=== PATIENT | male | born 1965 | race Caucasian/White ===

== ENCOUNTER 2023-10-04 20:16 | Inpatient (IN) | payer OTHER ==
[2023-10-04] MEDS ORDERED: GLUCAGON 1 MG KIT ONE (20:56)
[2023-10-04] MEDS ORDERED: DEXTROSE 50%-WATER - 25 GM/50 ML VIAL IVPUSH ONE (20:57)
[2023-10-04] MEDS ORDERED: DEXTROSE 50%-WATER 25 GM/50 ML DISP.SYRIN ONE (20:57)
[2023-10-04] MEDS ORDERED: LACTATED RINGERS SOLUTION 1000 ML INFUS.BAG IV ONE (21:03)
[2023-10-04] MEDS ORDERED: GLUCAGON 1 MG KIT IM ONE (21:06)
[2023-10-04 21:24] LABS: BASO % 0.6 % (0-2.0); EOS % 0.2 % (0-4.5); HEMATOCRIT 41.3 % (35.4-49); HEMOGLOBIN 13.9 GM/dL (11.7-16.9); LYMPH % 5.4 % (8-40); MCH 29.4 pg (25.7-33.7); MCHC 33.6 g/dl (32.0-35.9); MEAN CELL VOLUME 87.5 fl (80-96); MEAN PLT VOLUME 7.3 fl (7.5-11.1); MONO % 8.9 % (3.8-10.2); NEUT % 84.9 % (42.8-82.8); PLATELET COUNT 346 10^3/uL (134-434); RBC 4.72 M/mm3 (4.00-5.60); RDW 15.6 % (11.9-15.9); WHITE BLOOD COUNT 8.3 K/mm3 (4.0-10.0)
[2023-10-04 21:31] LABS: INR 1.03 (0.83-1.09); PROTHROMBIN TIME (PATIENT) 11.9 SEC (9.7-13.0)
[2023-10-04 21:33] LABS: ACTIVATED PTT 29.7 SECONDS (25.2-36.5)
[2023-10-04 21:48] LABS: POTASSIUM 4.7 mmol/L (3.5-5.1)
[2023-10-04 21:51] LABS: BLOOD UREA NITROGEN 56.6 mg/dL (7-18)
[2023-10-04 21:52] LABS: ALBUMIN 3.3 g/dl (3.4-5.0)
[2023-10-04 21:54] LABS: CREATININE 4.2 mg/dL (0.55-1.3)
[2023-10-04 21:56] LABS: BILIRUBIN,TOTAL 0.5 mg/dL (0.2-1); TOT PROT 6.8 g/dl (6.4-8.2)
[2023-10-04] MEDS ORDERED: ACETAMINOPHEN INJECTION 100 ML IVPB ONE (22:13)
[2023-10-05] MEDS ORDERED: DEXTROSE 5%-0.45% SALINE 1,000 ML IV SCH (02:45)
[2023-10-05] MEDS ORDERED: CEFTRIAXONE 1 GM/50 ML BAG ONE (03:39)
[2023-10-05] MEDS: CEFTRIAXONE 1 GM in DEXTROSE 5%-WATER - 50 ML IVPB SCH (04:00)
[2023-10-05 04:05] LABS: EPI CELLS 35 /uL (0-25.1); HYALINE CASTS 1 /uL (0-3.1); PH,URINE 5.5 (5.0-8.0); URINE APPEARANCE CLEAR; URINE BACTERIA 5 /uL (0-1359); URINE BILIRUBIN NEGATIVE (NEGATIVE); URINE COLOR YELLOW; URINE GLUCOSE (UA) TRACE (NEGATIVE); URINE KETONE NEGATIVE (NEGATIVE); URINE LEUK ESTERASE NEGATIVE (NEGATIVE); URINE NITRITE NEGATIVE (NEGATIVE); URINE PROTEIN 2+ (NEGATIVE); URINE RBC 14 /uL (0-23.9); URINE WBC 15 /uL (0-25.8)
[2023-10-05 04:10] LABS: COCAINE, UR NEGATIVE (NEGATIVE); METHADONE, UR NEGATIVE (NEGATIVE); OPIATES, URI NEGATIVE (NEGATIVE); URINE AMPHETAMINES NEGATIVE (NEGATIVE); URINE BARBITURATES NEGATIVE (NEGATIVE)
[2023-10-05 04:11] LABS: PHENCYCLIDINE,URINE NEGATIVE (NEGATIVE); URINE BENZODIAZEPINES NEGATIVE (NEGATIVE)
[2023-10-05 08:55] LABS: EOS % 0.3 % (0-4.5); HEMATOCRIT 39.1 % (35.4-49); HEMOGLOBIN 12.7 GM/dL (11.7-16.9); LYMPH % 9.9 % (8-40); MCHC 32.4 g/dl (32.0-35.9); MEAN CELL VOLUME 89.5 fl (80-96); MEAN PLT VOLUME 7.6 fl (7.5-11.1); MONO % 5.9 % (3.8-10.2); NEUT % 82.9 % (42.8-82.8); PLATELET COUNT 296 10^3/uL (134-434); RBC 4.37 M/mm3 (4.00-5.60); RDW 15.7 % (11.9-15.9); WHITE BLOOD COUNT 6.1 K/mm3 (4.0-10.0)
[2023-10-05] MEDS: ACETAMINOPHEN 1000 MG/100 ML BAG IVPB PRN (09:00)
[2023-10-05 09:05] LABS: POTASSIUM 4.2 mmol/L (3.5-5.1)
[2023-10-05 09:08] LABS: ALBUMIN 2.8 g/dl (3.4-5.0); BLOOD UREA NITROGEN 57.8 mg/dL (7-18); CALCIUM 8.5 mg/dL (8.5-10.1)
[2023-10-05 09:11] LABS: CREATININE 3.8 mg/dL (0.55-1.3)
[2023-10-05 09:13] LABS: BILIRUBIN,TOTAL 0.4 mg/dL (0.2-1); TOT PROT 5.8 g/dl (6.4-8.2)
[2023-10-05] MEDS ORDERED: ENOXAPARIN NA (PORCINE) 30 MG/0.3 ML DISP.SYRIN SQ ONE (09:49)
[2023-10-05] MEDS: ENOXAPARIN NA (PORCINE) 30 MG/0.3 ML DISP.SYRIN SQ SCH (10:13)
[2023-10-05] MEDS ORDERED: ACETAMINOPHEN INJECTION 100 ML IVPB ONE (11:12)
[2023-10-05] MEDS: DEXTROSE 5%-0.45% SALINE 1,000 ML IV SCH (11:20)
[2023-10-05] MEDS ORDERED: SODIUM CHLORIDE 0.9% 500 ML INFUS.BAG IV ONE (12:20)
[2023-10-05] MEDS ORDERED: PIPERACILLIN/TAZOB 3.375 GM 3.375 GM/50 ML BAG IVPB ONE (12:50)
[2023-10-05] MEDS ORDERED: VANCOMYCIN 1 GRAM (PRE-DOCKED) 1,000 MG/250 ML BAG IVPB ONE (12:50)
[2023-10-05] MEDS ORDERED: PIPERACILLIN/TAZOB 3.375 GM 3.375 GM in DEXTROSE 5%-WATER - 50 ML IVPB ONE (13:00)
[2023-10-05] MEDS ORDERED: VANCOMYCIN/WATER FOR INJ (PEG) 1,000 MG/200 ML BAG IVPB ONE (13:00)
[2023-10-05] MEDS ORDERED: BENZOIN/ALOE VERA/STORAX/TOLU 58 ML BOTTLE ONE (13:37)
[2023-10-05] MEDS: LACTATED RINGERS SOLUTION 1000 ML INFUS.BAG IV SCH ×3 (14:41→18:47)
[2023-10-05] MEDS ORDERED: HALOPERIDOL LACTATE 5 MG/ML ONE (15:06)
[2023-10-05] MEDS ORDERED: HALOPERIDOL LACTATE 5 MG/ML IM ONE (15:06)
[2023-10-05] MEDS ORDERED: PIPERACILLIN/TAZOB 2.25 GM 2.25 GM/50 ML BAG IVPB ONE (18:47)
[2023-10-05] MEDS: PIPERACILLIN/TAZOB 2.25 GM 2.25 GM in DEXTROSE 5%-WATER - 50 ML IVPB SCH (18:53)
[2023-10-05] MEDS ORDERED: SODIUM CHLORIDE 1,000 ML IV STA (19:10)
[2023-10-06] MEDS: ACETAMINOPHEN 1000 MG/100 ML BAG IVPB PRN (01:13)
[2023-10-06] MEDS: DEXTROSE 5%-0.45% SALINE 1,000 ML IV SCH (01:14)
[2023-10-06] MEDS: PIPERACILLIN/TAZOB 2.25 GM 2.25 GM in DEXTROSE 5%-WATER - 50 ML IVPB SCH ×4 (02:28→21:12)
[2023-10-06 04:16] VITALS: BMI 19.1
[2023-10-06] MEDS: ENOXAPARIN NA (PORCINE) 30 MG/0.3 ML DISP.SYRIN SQ SCH (10:15)
[2023-10-06] MEDS: CEFTRIAXONE 1 GM in DEXTROSE 5%-WATER - 50 ML IVPB SCH (10:16)
[2023-10-06] MEDS: D5-1/2NS+10 MEQ KCL - 10 MEQ/1,000 ML INFUS.BAG IV SCH (18:15)
[2023-10-06] MEDS ORDERED: ACETAMINOPHEN 325 MG TABLET (FP) PO ONE (20:32)
[2023-10-07] MEDS: PIPERACILLIN/TAZOB 2.25 GM 2.25 GM in DEXTROSE 5%-WATER - 50 ML IVPB SCH ×4 (02:38→20:29)
[2023-10-07] MEDS: D5-1/2NS+10 MEQ KCL - 10 MEQ/1,000 ML INFUS.BAG IV SCH ×2 (02:39→11:27)
[2023-10-07] MEDS ORDERED: ACETAMINOPHEN 325 MG TABLET (FP) PO ONE (06:06)
[2023-10-07 07:59] LABS: POTASSIUM 3.6 mmol/L (3.5-5.1)
[2023-10-07 08:06] LABS: BASO % 0.7 % (0-2.0); EOS % 1.7 % (0-4.5); HEMATOCRIT 30.6 % (35.4-49); HEMOGLOBIN 10.3 GM/dL (11.7-16.9); LYMPH % 13.9 % (8-40); MCH 29.8 pg (25.7-33.7); MCHC 33.8 g/dl (32.0-35.9); MEAN CELL VOLUME 88.3 fl (80-96); MONO % 12.9 % (3.8-10.2); NEUT % 70.8 % (42.8-82.8); PLATELET COUNT 217 10^3/uL (134-434); RBC 3.47 M/mm3 (4.00-5.60); RDW 15.1 % (11.9-15.9); WHITE BLOOD COUNT 6.7 K/mm3 (4.0-10.0)
[2023-10-07 08:09] LABS: CALCIUM 8.2 mg/dL (8.5-10.1)
[2023-10-07 08:10] LABS: BILIRUBIN,TOTAL 0.5 mg/dL (0.2-1); CREATININE 1.5 mg/dL (0.55-1.3)
[2023-10-07 08:26] LABS: ALBUMIN 2.2 g/dl (3.4-5.0); BLOOD UREA NITROGEN 18.7 mg/dL (7-18)
[2023-10-07] MEDS: TAMSULOSIN HCL 0.4 MG CAP PO SCH (09:44)
[2023-10-07] MEDS: ACETAMINOPHEN 500 MG TABLET (FP) PO PRN ×2 (09:44→17:56)
[2023-10-07 13:07] LABS: HEMATOCRIT 29.5 % (35.4-49); HEMOGLOBIN 10.2 GM/dL (11.7-16.9); MCH 29.7 pg (25.7-33.7); MCHC 34.7 g/dl (32.0-35.9); MEAN CELL VOLUME 85.6 fl (80-96); MEAN PLT VOLUME 7.5 fl (7.5-11.1); PLATELET COUNT 212 10^3/uL (134-434); RBC 3.44 M/mm3 (4.00-5.60); RDW 15.5 % (11.9-15.9)
[2023-10-07] MEDS: ENOXAPARIN NA (PORCINE) 30 MG/0.3 ML DISP.SYRIN SQ SCH (13:38)
[2023-10-07 19:42] LABS: EPI CELLS 3 /uL (0-25.1); HYALINE CASTS 1 /uL (0-3.1); PH,URINE 5.5 (5.0-8.0); URINE APPEARANCE CLEAR; URINE BACTERIA 2 /uL (0-1359); URINE BILIRUBIN NEGATIVE (NEGATIVE); URINE COLOR YELLOW; URINE GLUCOSE (UA) NEGATIVE (NEGATIVE); URINE KETONE NEGATIVE (NEGATIVE); URINE LEUK ESTERASE NEGATIVE (NEGATIVE); URINE NITRITE NEGATIVE (NEGATIVE); URINE PROTEIN 1+ (NEGATIVE); URINE RBC 26 /uL (0-23.9); URINE WBC 4 /uL (0-25.8)
[2023-10-08] MEDS: PIPERACILLIN/TAZOB 2.25 GM 2.25 GM in DEXTROSE 5%-WATER - 50 ML IVPB SCH ×2 (01:04→09:29)
[2023-10-08] MEDS: ACETAMINOPHEN 1000 MG/100 ML BAG IVPB PRN ×3 (04:15→16:01)
[2023-10-08 07:01] LABS: BASO % 0.5 % (0-2.0); EOS % 2.6 % (0-4.5); HEMATOCRIT 30.4 % (35.4-49); HEMOGLOBIN 10.2 GM/dL (11.7-16.9); LYMPH % 13.9 % (8-40); MCH 29.5 pg (25.7-33.7); MCHC 33.6 g/dl (32.0-35.9); MEAN CELL VOLUME 87.7 fl (80-96); MEAN PLT VOLUME 7.5 fl (7.5-11.1); MONO % 12.4 % (3.8-10.2); NEUT % 70.6 % (42.8-82.8); PLATELET COUNT 256 10^3/uL (134-434); RBC 3.47 M/mm3 (4.00-5.60); RDW 15.3 % (11.9-15.9); WHITE BLOOD COUNT 7.4 K/mm3 (4.0-10.0)
[2023-10-08 07:18] LABS: POTASSIUM 3.8 mmol/L (3.5-5.1)
[2023-10-08 07:25] LABS: ALBUMIN 2.2 g/dl (3.4-5.0); BLOOD UREA NITROGEN 14.2 mg/dL (7-18); CALCIUM 8.4 mg/dL (8.5-10.1); CREATININE 1.2 mg/dL (0.55-1.3)
[2023-10-08 07:27] LABS: BILIRUBIN,TOTAL 0.6 mg/dL (0.2-1)
[2023-10-08] MEDS ORDERED: IRON SUCROSE INJECTION 200 MG in SODIUM CHLORIDE 90 ML IVPB ONE (09:00)
[2023-10-08] MEDS: ENOXAPARIN NA (PORCINE) 30 MG/0.3 ML DISP.SYRIN SQ SCH (09:29)
[2023-10-08] MEDS: TAMSULOSIN HCL 0.4 MG CAP PO SCH (09:29)
[2023-10-08] MEDS ORDERED: ASPIRIN COATED 81 MG TABLET.EC PO SCH (10:00)
[2023-10-08] MEDS: D5-1/2NS+10 MEQ KCL - 10 MEQ/1,000 ML INFUS.BAG IV SCH ×2 (11:20→21:16)
[2023-10-08] MEDS ORDERED: HEPARIN NA (PORCINE) 5,000 UNITS/ML 1ML VIAL ONE (16:05)
[2023-10-08] MEDS ORDERED: BUPIVACAINE HCL/PF 0.5% (5MG/ML) 10 ML VIAL ONE (16:28)
[2023-10-08] MEDS ORDERED: PROPOFOL 40 ML ONE (17:57)
[2023-10-08] MEDS ORDERED: FENTANYL CITRATE/PF 50 MCG/ML VIAL ONE ×2 (17:57→19:00)
[2023-10-08] MEDS ORDERED: MIDAZOLAM HCL 2 MG/2 ML SINGLE DOSE VIAL ONE (17:57)
[2023-10-08] MEDS ORDERED: LIDOCAINE HCL/PF 2% SDV 5ML VIAL ONE (17:59)
[2023-10-08] MEDS ORDERED: SODIUM CHLORIDE 0.9% P/F 10 ML VIAL IJ ONE (17:59)
[2023-10-08] MEDS ORDERED: DEXAMETHASONE SOD PHOSPHATE 4 MG/1 ML VIAL ONE (17:59)
[2023-10-08] MEDS ORDERED: METOCLOPRAMIDE HCL INJECTION 10 MG/2 ML VIAL ONE (17:59)
[2023-10-08] MEDS ORDERED: ONDANSETRON 4 MG/2 ML VIAL ONE (17:59)
[2023-10-08] MEDS ORDERED: ALBUTEROL SO4 HFA INHALER IH ONE (18:01)
[2023-10-08] MEDS ORDERED: PIPERACILLIN/TAZOBACTAM 3.375 GM VIAL IVPB ONE (18:19)
[2023-10-08] MEDS ORDERED: PIPERACILLIN/TAZOBACTAM 2.25 GM VIAL IVPB ONE (18:25)
[2023-10-08] MEDS ORDERED: LIDOCAINE HCL 1%, 10 MG/ML (20ML VIAL) INF ONE (18:38)
[2023-10-08] MEDS ORDERED: ONDANSETRON 4 MG/2 ML VIAL IVPUSH PRN (18:59)
[2023-10-08] MEDS ORDERED: LACTATED RINGERS SOLUTION 1,000 ML IV SCH (19:00)
[2023-10-08] MEDS ORDERED: ACETAMINOPHEN 1000 MG/100 ML BAG IVPB PRN (19:08)
[2023-10-09] MEDS: PIPERACILLIN/TAZOB 2.25 GM 2.25 GM in DEXTROSE 5%-WATER - 50 ML IVPB SCH ×3 (03:16→17:21)
[2023-10-09] MEDS: ACETAMINOPHEN 500 MG TABLET (FP) PO PRN ×3 (03:51→20:22)
[2023-10-09 07:29] LABS: BASO % 0.1 % (0-2.0); EOS % 0.1 % (0-4.5); HEMATOCRIT 28.8 % (35.4-49); HEMOGLOBIN 10.1 GM/dL (11.7-16.9); LYMPH % 12.4 % (8-40); MCH 30.1 pg (25.7-33.7); MEAN PLT VOLUME 7.5 fl (7.5-11.1); MONO % 9.1 % (3.8-10.2); NEUT % 78.3 % (42.8-82.8); PLATELET COUNT 333 10^3/uL (134-434); RBC 3.35 M/mm3 (4.00-5.60); RDW 15.2 % (11.9-15.9); WHITE BLOOD COUNT 7.6 K/mm3 (4.0-10.0)
[2023-10-09 09:15] LABS: POTASSIUM 4.2 mmol/L (3.5-5.1)
[2023-10-09 09:18] LABS: ALBUMIN 2.2 g/dl (3.4-5.0); BLOOD UREA NITROGEN 13.8 mg/dL (7-18); CALCIUM 8.4 mg/dL (8.5-10.1)
[2023-10-09 09:21] LABS: CREATININE 1.2 mg/dL (0.55-1.3)
[2023-10-09 09:22] LABS: BILIRUBIN,TOTAL 0.7 mg/dL (0.2-1)
[2023-10-09] MEDS: TAMSULOSIN HCL 0.4 MG CAP PO SCH (09:28)
[2023-10-09] MEDS: ASPIRIN COATED 81 MG TABLET.EC PO SCH (09:28)
[2023-10-09] MEDS: ENOXAPARIN NA (PORCINE) 40 MG/0.4 ML DISP.SYRIN SQ SCH (09:28)
[2023-10-09] MEDS ORDERED: DEXAMETHASONE SOD PHOSPHATE 4 MG/1 ML VIAL ONE (10:28)
[2023-10-09] MEDS: D5-1/2NS+10 MEQ KCL - 10 MEQ/1,000 ML INFUS.BAG IV SCH (11:11)
[2023-10-10] MEDS: D5-1/2NS+10 MEQ KCL - 10 MEQ/1,000 ML INFUS.BAG IV SCH ×2 (01:00→17:21)
[2023-10-10] MEDS: PIPERACILLIN/TAZOB 2.25 GM 2.25 GM in DEXTROSE 5%-WATER - 50 ML IVPB SCH ×2 (02:46→09:00)
[2023-10-10] MEDS: ACETAMINOPHEN 500 MG TABLET (FP) PO PRN ×3 (03:37→18:55)
[2023-10-10] MEDS: TAMSULOSIN HCL 0.4 MG CAP PO SCH (08:55)
[2023-10-10] MEDS: ASPIRIN COATED 81 MG TABLET.EC PO SCH (09:00)
[2023-10-10] MEDS: ENOXAPARIN NA (PORCINE) 40 MG/0.4 ML DISP.SYRIN SQ SCH (09:00)
[2023-10-10] MEDS: PIPERACILLIN/TAZOB 4.5 GM 4.5 GM in DEXTROSE 5%-WATER 100 ML IVPB SCH (17:20)
[2023-10-10] MEDS: ATORVASTATIN CA 20 MG TABLET (FP) PO SCH (22:16)
[2023-10-11] MEDS: PIPERACILLIN/TAZOB 4.5 GM 4.5 GM in DEXTROSE 5%-WATER 100 ML IVPB SCH ×3 (01:55→17:20)
[2023-10-11] MEDS: D5-1/2NS+10 MEQ KCL - 10 MEQ/1,000 ML INFUS.BAG IV SCH ×3 (02:00→22:38)
[2023-10-11] MEDS: TAMSULOSIN HCL 0.4 MG CAP PO SCH (09:02)
[2023-10-11] MEDS: ENOXAPARIN NA (PORCINE) 40 MG/0.4 ML DISP.SYRIN SQ SCH (09:03)
[2023-10-11] MEDS: ASPIRIN COATED 81 MG TABLET.EC PO SCH (09:03)
[2023-10-11] MEDS: ACETAMINOPHEN 500 MG TABLET (FP) PO PRN ×2 (10:24→16:22)
[2023-10-11] MEDS: ATORVASTATIN CA 20 MG TABLET (FP) PO SCH (21:54)
[2023-10-12] MEDS: PIPERACILLIN/TAZOB 4.5 GM 4.5 GM in DEXTROSE 5%-WATER 100 ML IVPB SCH ×3 (03:40→17:13)
[2023-10-12] MEDS: ACETAMINOPHEN 500 MG TABLET (FP) PO PRN ×3 (04:46→21:07)
[2023-10-12] MEDS: ASPIRIN COATED 81 MG TABLET.EC PO SCH (10:55)
[2023-10-12] MEDS: ENOXAPARIN NA (PORCINE) 40 MG/0.4 ML DISP.SYRIN SQ SCH (10:55)
[2023-10-12] MEDS: TAMSULOSIN HCL 0.4 MG CAP PO SCH (10:55)
[2023-10-12] MEDS: ATORVASTATIN CA 20 MG TABLET (FP) PO SCH (21:06)
[2023-10-12] MEDS: D5-1/2NS+10 MEQ KCL - 10 MEQ/1,000 ML INFUS.BAG IV SCH (22:57)
[2023-10-13] MEDS: PIPERACILLIN/TAZOB 4.5 GM 4.5 GM in DEXTROSE 5%-WATER 100 ML IVPB SCH ×2 (04:00→11:13)
[2023-10-13] MEDS ORDERED: traMADol HCL 50 MG TABLET PO PRN (08:04)
[2023-10-13] MEDS: ACETAMINOPHEN 500 MG TABLET (FP) PO PRN (08:14)
[2023-10-13] MEDS: TAMSULOSIN HCL 0.4 MG CAP PO SCH (08:14)
[2023-10-13] MEDS: ENOXAPARIN NA (PORCINE) 40 MG/0.4 ML DISP.SYRIN SQ SCH (11:12)
[2023-10-13] MEDS: ASPIRIN COATED 81 MG TABLET.EC PO SCH (11:12)
[2023-10-13 11:15] VITALS: BP 133/75; PULSE 100; RESP 18; TEMP 98
== END 2023-10-13 11:48 | disposition home or self-care (01) | DRG 720 ==
LOC: JER 20:16 → JERBED 23:32 → J4W 10-06 01:02
PROVIDERS: ADMIT Family Medicine; ATTEND Family Medicine
PROC: B40GYZZ Plain Radiography of Left Lower Extremity Arteries using Other Contrast (ICD-10-PCS; 2023-10-08)
PROC: B40FYZZ Plain Radiography of Right Lower Extremity Arteries using Other Contrast (ICD-10-PCS; 2023-10-08)
PROC: B40DYZZ Plain Radiography of Aorta and Bilateral Lower Extremity Arteries using Other Contrast (ICD-10-PCS; principal; 2023-10-08 15:00)
DX: A40.9 Streptococcal sepsis, unspecified (principal); G92.8 Other toxic encephalopathy; I70.262 Atherosclerosis of native arteries of extremities with gangrene, left leg; N17.9 Acute kidney failure, unspecified; E16.2 Hypoglycemia, unspecified; R55 Syncope and collapse; L97.528 Non-pressure chronic ulcer of other part of left foot with other specified severity; R00.0 Tachycardia, unspecified; I10 Essential (primary) hypertension; J98.11 Atelectasis; M62.82 Rhabdomyolysis; M54.89 Other dorsalgia; J44.9 Chronic obstructive pulmonary disease, unspecified; I77.1 Stricture of artery
CPT/HCPCS: 0241U-QW; 36415; 70450-TC; 71045-TC-FY; 73630-TC-LT; 76000-TC-FY; 80053; 80061; 80307; 81003; 82550; 82553; 82728; 82962; 83540; 83550; 83605; 84484; 85025; 85027; 85610; 85730; 86850; 86900; 86901; 87040; 87086; 87186; 93005; 93010; 93306-TC; 93880-TC; 93926-TC; 94760; 99285-25; J1644; J1756